=== PATIENT | male | born 1970 | race Caucasian/White ===

== ENCOUNTER 2016-06-14 16:11 | Observation (INO) | payer OTHER ==
[~2016-06-14] VITALS: Ht 182.9 cm; Wt 97.5 kg
--- NOTE | ~2016-06-14 | EKG ---
[place] [address] [facility] [place] [address] ELECTROCARDIOGRAM REPORT Name: GLENNA HOFFMAN Room #: 313-P [facility] M.R.#: [id number] Admission: 06/14/16 Attend Phys: Avery Heard MD Discharge: Date of : 70 Report #: [id number] THIS REPORT FOR: //name// [facility] ED Test Date: 2016-06-14 Test Time: 16:20:23 Pat Name: GLENNA HOFFMAN Department: Room: [facility] Gender: M Ammonium Sulfate Operator: Maurice DANIEL : 1970 Requested By: Christine Adams Order Number: [id number] MD: Jose Johnson Measurements Intervals [place] Rate: 113 P: 45 DE: 175 QRS: 96 QRSD: 92 T: -61 QT: 305 QTc: 419 Interpretive Statements Sinus tachycardia Poor R-wave progression nonspecific ST and T wave abnormality No previous ECG available for comparison Electronically Signed On 06-15-2016 7:34:04 [employer] by Jose Johnson [email or web address] <ELECTRONICALLY SIGNED> By: Jose Johnson MD, [facility] 06/15/16 0734 1620 19 Jose Johnson MD, FACC /EPI
--- NOTE | ~2016-06-14 | CARDNUC ---
[facility] [address] [place] [address] CARDIAC NUCLEAR IMAGING REPORT Name: GLENNA HOFFMAN Room #: 313-P [facility]#: [id number] Admission: 06/14/16 Attend Phys: Avery Heard MD Discharge: 06/16/16 Date of : 70 Date of Service: 06/16/16 0855 Report #: [id number] THIS REPORT FOR: //name// CC: FAM physician/PCP Avery Heard DATE OF SERVICE: 06/15/2016 Vasodilator Gated SPECT Myocardial Perfusion Imaging: Regadenoson Attending physician: Avery Heard MD. Referring director behavioral health: Jose Johnson MD [facility]. Date of study: 06/15/2016. Indications for study: Chest pain and shortness of breath. Cardiovascular risk factors: Hyperlipidemia and hypertension. Cardiac medications: Aspirin. Gender: Male. PROCEDURE: The patient was given 0.4 mg of intravenous regadenoson (Lexiscan) administered over approximately 20 seconds. The patient did not complain of chest discomfort during the infusion. At baseline the blood pressure was 171/119 and the pulse was 83; at completion of the regadenoson infusion the blood pressure was 167/107 and the pulse was 96. At completion of the recovery phase the blood pressure was 151/99 and the pulse was 88. The baseline EKG demonstrated normal sinus rhythm, nonspecific ST-T wave changes. The EKG at completion of the administration of regadenoson demonstrated no changes. Gated-SPECT myocardial perfusion imaging was performed using a one-day imaging protocol and a technetium isotope technique. The 8.6 mCi of Tc-99m sestamibi was administered intravenously at rest; 33.5 mCi of Tc-99m sestamibi was administered intravenously within 10 seconds of the completion of the administration of regadenoson. Imaging was obtained in the supine position and when feasible, adjunctive stress imaging in the prone position was obtained. FINDINGS: The overall quality of the study was satisfactory. There was no evidence of attenuation artifact. There was no evidence of abnormal extracardiac uptake of the radionuclide. The baseline imaging study demonstrated homogenous uptake of isotope in all segments of the myocardium without any regions of photopenia. The imaging obtained following the administration of the vasodilator demonstrated no change. On gated analysis the left ventricle demonstrated normal contractility. The [address] [address] CARDIAC NUCLEAR IMAGING REPORT Name: GLENNA HOFFMAN Room #: 313-P [facility]#: [id number] Admission: 06/14/16 Attend Phys: Avery Heard MD Discharge: 06/16/16 Date of : 70 Date of Service: 06/16/16 0855 Report #: [id number] gated ejection fraction was 69%. The left ventricle was of normal size at rest and did not dilate with the administration of the vasodilator. IMPRESSIONS: CLINICAL RESPONSE: Adequate response to intravenous Lexiscan. STRESS EKG RESPONSE: Inadequate heart rate for an ECG diagnosis. MYOCARDIAL PERFUSION STUDY: Scintigraphically homogenous without regions of photopenia noted. No wall motion abnormalities. FUNCTIONAL CAPACITY: Not assessed. CONCLUSIONS: Low risk study. <ELECTRONICALLY SIGNED> By: John Nguyễn MD 06/17/16 1154 0855 1209 John Nguyễn MD /nt
--- NOTE | ~2016-06-14 | 2DMMODE ---
[facility] [place] [address] 2 D/M-MODE ECHOCARDIOGRAM Name: GLENNA HOFFMAN Room #: 313-P [facility]#: [id number] Admission: 06/14/16 Attend Phys: Avery Heard MD Discharge: Date of : 70 Date of Service: 06/15/16 1048 Report #: [id number] THIS REPORT FOR: //name// Transthoracic Echocardiography Ordering physician: Vilma Payton Referring physician: Vilma Payton Enrollment Management Manager: Mary Ngo Indications/History: Chest pain, short of breath BP: 140 / HR: 71bpm Height: 72in Weight: 214.5lb 90 Study data: M-mode, complete 2D, complete spectral Doppler, and color Doppler. Location: Echo laboratory. Routine. Image quality was adequate. 2D measurements Normal Normal LVID ED 43.8mm 36-57 IVS ED 12.9mm 6-11 LVID ES 30mm 23-40 LVPW ED 12.8mm 6-11 LA volume 19ml/m2 16-28 AoRoot diam 34.8mm 21-37 index ED LVOT diameter 22mm 18-23 Findings: Left ventricle: The cavity size was normal. Wall thickness was increased in a pattern of mild LVH. Systolic function was normal. The estimated ejection fraction was in the range of 60% to 65%. Wall motion was normal. Right ventricle: The cavity size was normal. Systolic function was normal. Right atrium: The atrium was normal in size. Left atrium: The atrium was normal in size. Volume index: 19ml/m2 (S). Aortic valve: Structurally normal valve. Doppler: There was no stenosis. No regurgitation. Peak velocity: 139.4cm/s (S). [facility] [address] [email or web address] [address] 2 D/M-MODE ECHOCARDIOGRAM Name: GLENNA HOFFMAN Room #: 313-P [facility] [place]#: [id number] Admission: 06/14/16 Attend Phys: Avery Heard MD Discharge: Date of : 70 Date of Service: 06/15/16 1048 Report #: [id number] Mitral valve: Structurally normal valve. Doppler: There was no evidence for stenosis. No regurgitation. Peak E-wave velocity: 76.9cm/s. Peak gradient: 2.4mm Hg (D). Peak A-wave velocity: 89.6cm/s. Tricuspid valve: Structurally normal valve. Doppler: There was no evidence for stenosis. Trivial regurgitation. Pulmonic valve: Structurally normal valve. Doppler: There was no evidence for stenosis. Trivial regurgitation. Pericardium: There was no pericardial effusion. Aorta: Aortic root: The aortic root was normal in size. Pulmonary artery: Pressure could not be reliably determined due to minimal or absent tricuspid insufficiency jet, but pulmonary hypertension was not suggested. Diastolic function: Doppler parameters are consistent with abnormal left ventricular relaxation (grade 1 diastolic dysfunction). Systemic veins: Inferior vena cava: The vessel was normal in size; the respirophasic diameter changes were in the normal range (= 50%). Conclusions 1. Left ventricle: Systolic function was normal. The estimated ejection fraction was in the range of 60% to 65%. Wall motion was normal. Doppler parameters are consistent with abnormal left ventricular relaxation (grade 1 diastolic dysfunction). 2. Aortic valve: Structurally normal valve. There was no stenosis. No regurgitation. 3. Mitral valve: Structurally normal valve. No regurgitation. 4. Pericardium, extracardiac: There was no pericardial effusion. <ELECTRONICALLY SIGNED> By: Jose Johnson MD, [facility] 06/15/16 1243 1048 1243 Jose Johnson MD, [facility] /stanislav
[2016-06-14 16:13] VITALS: BP 177/126
[2016-06-14 17:14] LABS: BASOPHILS 0.4 % (0.0-2.0); EOSINOPHILS 0.7 % (0.0-3.0); HEMATOCRIT 51.1 % (42.0-52.0); HEMOGLOBIN 17.5 gm/dL (14.0-18.0); MCH 30.4 pg (26.0-34.0); MCHC 34.3 % (28.0-37.0); MCV 88.7 fL (80.0-100.0); MONOCYTES 4.7 % (1.0-8.0); PLATELET COUNT 216 thou/uL (150-400); POLYS 78.2 % (36.0-66.0); RBC 5.76 mil/uL (4.50-6.00); RDW 13.3 % (10.5-14.5); WBC 7.6 thou/uL (4.0-11.0)
[2016-06-14 17:20] LABS: ANION GAP 10 mmol/L (7-16); BUN 10 mg/dL (7-18); CHLORIDE 103 mmol/L (98-107); CO2 28 mmol/L (21-32); CREATININE 1.4 mg/dL (0.6-1.3); GLUCOSE 155 mg/dL (70-99); POTASSIUM 3.4 mmol/L (3.5-5.1); SODIUM 141 mmol/L (136-145)
[2016-06-14 17:21] LABS: MANUAL DIFF NO
[2016-06-14 17:28] LABS: TROPONIN-I < 0.04 ng/mL (<0.04-0.07)
[2016-06-14 20:23] VITALS: BP 183/120
[2016-06-14 20:45] VITALS: BP 153/103
[2016-06-14 23:48] VITALS: BP 146/84
[2016-06-15 02:35] LABS: CHOLESTEROL 205 mg/dL (<200); HDL CHOLESTEROL 33 mg/dL (>40); LDL CHOLESTEROL 145 mg/dL (<100); TC:HDL 6.2 Ratio (Not establshd); TRIGLYCERIDE 137 mg/dL (<150); VLDL 27 mg/dL (<40)
[2016-06-15 02:36] LABS: SERUM ASSESSMENT Clear
[2016-06-15 04:00] VITALS: BP 140/91
[2016-06-15 05:57] LABS: ANION GAP 10 mmol/L (7-16); BUN 12 mg/dL (7-18); CALCIUM 8.9 mg/dL (8.5-10.1); CHLORIDE 106 mmol/L (98-107); CO2 28 mmol/L (21-32); CREATININE 1.3 mg/dL (0.6-1.3); GLUCOSE 124 mg/dL (70-99); MAGNESIUM 2.4 mg/dL (1.8-2.4); POTASSIUM 3.7 mmol/L (3.5-5.1); SODIUM 144 mmol/L (136-145); TROPONIN-I < 0.04 ng/mL (<0.04-0.07)
[2016-06-15 08:08] VITALS: BP 140/90
[2016-06-15 15:14] VITALS: BP 145/101
[2016-06-15 16:52] VITALS: BP 181/116
[2016-06-15 17:45] VITALS: BP 171/97
[2016-06-15 20:15] VITALS: BP 162/114
[2016-06-16 01:08] LABS: GLYCOHEMOGLOBIN (HGB A1C) 5.1 % (4.8-5.6)
[2016-06-16 03:45] VITALS: BP 120/84
[2016-06-16 09:00] VITALS: BP 114/76
[2016-06-16 11:39] VITALS: BP 114/76
== END 2016-06-16 12:51 | disposition home or self-care (01) ==
LOC: ER 16:11 → EROBS 19:13 → 3N 19:13 → EROBS 19:13 → 3N 20:23
PROVIDERS: Emergency Medicine; Nurse Practitioner Acute Care
DX: R07.9 Chest pain, unspecified (principal); I16.0 Hypertensive urgency; Z79.899 Other long term (current) drug therapy; Z79.82 Long term (current) use of aspirin; E78.00 Pure hypercholesterolemia, unspecified; F10.10 Alcohol abuse, uncomplicated; E78.5 Hyperlipidemia, unspecified